=== PATIENT | female | born 1970 | race Caucasian/White ===

== ENCOUNTER 2020-12-08 08:29 | Emergency (ER) | payer OTHER ==
[~2020-12-08] VITALS: Ht 160 cm; Wt 54.4 kg
[~2020-12-08 08:29] MED LIST: PREDNISONE 50 M50 MG PO; TESSALON PERLE100 MG PO; VENTOLIN HFA 66.7 GM INH; ZITHROMAX250 MG PO
[2020-12-08] MEDS ORDERED: ZOFRAN4 MG PO (11:18)
[2020-12-08] MEDS ORDERED: VENTOLIN HFA 66.7 GM INH (11:18)
[2020-12-08] MEDS ORDERED: BACTRIM DS TAB1 EACH PO (11:18)
== END 2020-12-08 13:00 | disposition home or self-care (01) ==
LOC: ER1 08:29
DX: Z23 Encounter for immunization (principal); U07.1 COVID-19; N39.0 Urinary tract infection, site not specified; Z88.0 Allergy status to penicillin
CPT/HCPCS: 71045; 81001; 87086; 99283; J2405; M0243; U0002